=== PATIENT | female | born 1995 | race Caucasian/White ===

== ENCOUNTER 2022-10-14 11:07 | Emergency (ER) | payer OTHER, SELFPAY ==
[2022-10-14] VITALS (7 sets, daily range): BP systolic 123–148; BP diastolic 71–85; PULSE 65–87; RESP 16–18; TEMP 36.4; O2SAT 98–99; BMI 36.6
--- NOTE | 2022-10-14 11:41 | ED.ALLEREA ---
HPI - Allergic Reaction General Chief complaint: Allergic Reaction Stated complaint: allergic reaction,rt arm swelling, sob Time Seen by Provider: 10/14/22 11:41 Source: patient Mode of arrival: Family Vehicle Limitations: no limitations History of Present Illness HPI narrative: This is a 19-year-old female with history of environmental allergies oral contraceptives who presents with complaint of allergic reaction after getting her typical allergy shot. She states she thinks it may have increased the dosage today. She had redness swelling at the site which is atypical and developed some swelling of her lips and feeling tight in her chest. She used her albuterol inhaler at home which was helpful for the breathing. She did take cetirizine this morning before her shots. Shots for about 7:00 a.m. this morning she developed symptoms about 9 9:30 a.m.. She states it has been slowly worsening. She denies any chest pain or pressure. No syncope. No nausea or vomiting, no diarrhea constipation. No rash elsewhere or hives otherwise. She has not had a response like this before. She has never received epinephrine. She is otherwise been healthy. No known drug allergies. No tobacco, occasional alcohol, no recreational drugs or illicit. Related Data Previous Rx's Medication Instructions Recorded epinephrine 0.3 mg/0.3 mL 0.3 mg (0.3 mL) IM Q5-15M PRN 10/14/22 injection, auto-injector (EpiPen anaphylaxis #2 ea 2-Paul) prednisone 20 mg tablet 40 mg PO DAILY #10 tabs 10/14/22 Review of Systems Review of Systems ROS Unobtainable: All systems reviewed & are unremarkable except as noted in HPI and below Patient History Social History Smoking Status: Never smoker Smoking Status: Never smoker alcohol intake frequency: a few times a month Substance Use Type: does not use Exam Narrative Exam Narrative: GEN: well nourished, well appearing female, alert and oriented x 3, patient appears to be in mild distress. HEENT: Atraumatic, pupils are equal round reactive to light, extraocular movements are intact, nares are clear, TMs are clear with no fluid, there is no conjunctival pallor. Throat is clear without any exudates, erythema, tonsillar enlargement or uvular deviation, patient has some slight swelling of lower lips. No muffled voice, clear speech no stridor, no difficulty with secretions. HEART: Regular rate and rhythm without murmur, clicks, rubs. LUNGS:Lungs clear to auscultation, no wheezes, rales, crackles, chest moves symmetrically ABD:bowel sounds normal, soft, non-tender, no guarding, rebound, rigidity, no masses noted, no hepatosplenomegaly :No CVA tenderness MSCL: Non-tender, no muscle atrophy, muscles strength 5/5 upper and lower extremities, full range of motion, normal gait NEURO:CN 2-12 intact, sensation normal SKIN: Patient has swelling of the left deltoid region consistent where she had her injection with some erythema. No hives. Initial Vital Signs Initial Vital Signs: Vital Signs Temperature 97.5 F L 10/14/22 11:28 Pulse Rate 87 10/14/22 11:28 Respiratory Rate 18 10/14/22 11:28 Blood Pressure 148/85 H 10/14/22 11:28 Pulse Oximetry 98 10/14/22 11:28 Oxygen Delivery Method Room Air 10/14/22 11:28 Course Orders Ordered: Discontinued Medications Diphenhydramine HCl (Diphenhydramine 50 Mg/Ml Vial) 50 mg IV NOW ONE Stop: 10/14/22 11:42 Last Admin: 10/14/22 11:48 Dose: 50 mg Documented By: BS Famotidine (Famotidine 20 Mg/2 Ml Vial) 20 mg IV NOW SESAR Last Admin: 10/14/22 11:48 Dose: 20 mg Documented By: LEONARDO Methylprednisolone (Methylprednisolone 125 Mg/2 Ml Vial) 125 mg IV NOW ONE Stop: 10/14/22 11:42 Last Admin: 10/14/22 11:47 Dose: 125 mg Documented By: LEONARDO Vital Signs Vital signs: Vital Signs - 8 hr 10/14/22 12:00 10/14/22 12:04 10/14/22 12:04 Pulse Rate 82 81 Respiratory Rate Blood Pressure 126/72 Pulse Oximetry 98 99 Oxygen Delivery Method 10/14/22 12:30 10/14/22 12:31 10/14/22 12:31 Pulse Rate 65 72 Respiratory Rate Blood Pressure 124/73 Pulse Oximetry 99 99 Oxygen Delivery Method 10/14/22 13:38 Pulse Rate 83 Respiratory Rate 16 Blood Pressure 123/71 Pulse Oximetry 99 Oxygen Delivery Method Room Air MDM - Allergic Reaction Lab Data Labs: Point of Care Testing Test Results Negative Urine Dip Bedside Urine Glucose Negative Bedside Urine Bilirubin - Negative Bedside Urine Ketone - Negative Urine Specific [place] 1.015 Bedside Urine Occult Blood - Negative Bedside Urine pH 6.0 Bedside Urine Protein - Negative Bedside Urine Urobilinogen - Negative Bedside Urine Nitrite - Negative Bedside Urine Leukocytes +/- 15 Esterase MDM Narrative Medical decision making narrative: 27-year-old female who presents with complaint of allergic reaction to allergy shots. Patient does have some mild swelling but has been slowly progressive so will try steroids, Benadryl and Pepcid. Patient rechecked shortly after receiving medications. Patient states no worsening. She has not noticed significant improvement. She states symptoms have been stapled. Feels comfortable with discharge home. Indications as well as prescription for EpiPen provided. Discharge Plan Departure Patient Disposition: Home Clinical Impression: Allergic reaction Instructions: DI for Anaphylaxis Activity Restrictions/Additional Instructions: Follow-up with your physician who provides her allergy shots. Continue your certrizine daily. Take 1-2 tablets of Benadryl (diphenhydramine) every 6 hours as needed for symptoms. Take prednisone until completed. Use EpiPen as directed. If you have to use your EpiPen you should be evaluated in emergency department afterwards or by EMS. Prescription sent to [facility] pharmacy in [place]. Please return for new or worsening symptoms, increasing swelling of your lips, tongue or airway, increasing chest pain or shortness of breath, persistent vomiting, increasing swelling of extremities or other new or concerning changes. Prescriptions: New prednisone 20 mg tablet 40 mg PO DAILY Qty: 10 0RF epinephrine [EpiPen 2-Paul] 0.3 mg/0.3 mL auto-injector 0.3 mg IM Q5-15M PRN (Reason: anaphylaxis) Qty: 2 0RF Rx Instructions: do not exceed 3 doses per episode Stand Alone Forms: Patient Portal/API, Work Release Note
[2022-10-14] MEDS: methylPREDNISolone 125 MG/2 ML VIAL IV (11:47)
[2022-10-14] MEDS: diphenhydrAMINE 50 MG/ML VIAL IV (11:48)
[2022-10-14] MEDS: FAMOTIDINE 20 MG/2 ML VIAL IV (11:48)
== END 2022-10-14 14:03 | disposition home or self-care (01) ==
PROVIDERS: Emergency Provider Emergency Medicine
DX: T78.40XA Allergy, unspecified, initial encounter (principal)
CPT/HCPCS: 36415; 81003; 81025; 96374; 96375; 99284; J1200; J2930

== ENCOUNTER 2023-02-16 17:48 | Emergency (ER) | payer OTHER, SELFPAY ==
[2023-02-16 17:57] VITALS: BP 123/84; PULSE 83; RESP 16; TEMP 36.6; O2SAT 100; BMI 35.5
--- NOTE | 2023-02-16 18:02 | DI.RAD.S_ITS ---
PROCEDURE: XR ANKLE RT MIN 3V INDICATIONS: rolled it, pain TECHNIQUE: 3 views of the ankle were acquired. COMPARISON: None. FINDINGS: Bones: No fractures or dislocations. Ankle mortise is normally aligned. No suspicious bony lesions. Soft tissues: No tibiotalar joint effusion. Achilles tendon appears normal. IMPRESSION: No acute bony abnormality or significant effusion. Dictated by: Felicity Flowers M.D. on 02/16/2023 at 18:23 Approved by: Felicity Flowers M.D. on 02/16/2023 at 18:23
[2023-02-16] MEDS: IBUPROFEN 400 MG TABLET 800 MG PO (18:31)
--- NOTE | 2023-02-16 18:48 | DI.RAD.S_ITS ---
PROCEDURE: XR TIBIA FUBULA RT 2V INDICATIONS: Tenderness over proximal tibia TECHNIQUE: 2 views of the tibia and fibula were acquired. COMPARISON: None. FINDINGS: Bones: No fractures or dislocations. No suspicious bony lesions. Soft tissues: No suspicious soft tissue calcifications or masses. IMPRESSION: No acute bony abnormality. Dictated by: Felicity Flowers M.D. on 02/16/2023 at 20:53 Approved by: Felicity Flowers M.D. on 02/16/2023 at 20:53
--- NOTE | 2023-02-16 18:49 | ED.LOWEXIN ---
HPI - Extremity Injury (Lower) <Melinda Rosen PA-C - Last Filed: 02/16/23 19:36> General Chief Complaint: Extremity Injury, Lower Stated Complaint: fell down stairs/rt ankle inj/burning sensations Time Seen by Provider: 02/16/23 18:08 Source: patient Mode of arrival: Ambulatory History of Present Illness HPI Narrative: Patient is a 27-year-old female presenting for evaluation of right ankle pain. She states that she fell down the stairs early this morning and inwardly rolled her right ankle. She reports that she did hit her head lightly on the right lateral aspect on the front side. She reports feeling a little bit of numbness in her right foot today and reports worse pain over her right lateral malleolus. She reports pain with dorsiflexion and external rotation present just distal to her right knee. Related Data Previous Rx's Medication Instructions Recorded epinephrine 0.3 mg/0.3 mL 0.3 mg (0.3 mL) IM Q5-15M PRN 10/14/22 injection, auto-injector (EpiPen anaphylaxis #2 ea 2-Paul) prednisone 20 mg tablet 40 mg (2 x 20 mg) PO DAILY #10 tabs 10/14/22 Allergies Allergy/AdvReac Type Severity Reaction Status Date / Time No Known Drug Allergies Allergy Verified 02/16/23 17:57 Review of Systems <Melinda Rosen PA-C - Last Filed: 02/16/23 19:36> Review of Systems Narrative: See HPI Patient History <Melinda Rosen PA-C - Last Filed: 02/16/23 19:36> Social History Smoking Status: Never smoker Smoking Status: Never smoker alcohol intake frequency: a few times a month Substance Use Type: does not use Exam <Melinda Rosen PA-C - Last Filed: 02/16/23 19:36> Initial Vital Signs Initial Vital Signs: Vital Signs Temperature 97.8 F 02/16/23 17:57 Pulse Rate 83 02/16/23 17:57 Respiratory Rate 16 02/16/23 17:57 Blood Pressure 123/84 02/16/23 17:57 Pulse Oximetry 100 02/16/23 17:57 Oxygen Delivery Method Room Air 02/16/23 17:57 GENERAL: 27 year old patient appears stated age. Well-developed patient, in no acute distress. HEAD: Atraumatic. Normocephalic. EYES: Pupils equal round No scleral icterus. No injection or drainage. NECK: Trachea midline, supple RESPIRATORY: Speaking comfortably normal tone of voice without any increased work of breathing. EXTREMITIES: Tenderness to palpation of right lateral malleolus, tender to palpation of high ankle, worse over the medial aspect just distal to right knee. Right Posterior tibialis pulse 2 +, no bruising noted, there is slight swelling over the right lateral malleolus NEURO: AOx3. SKIN: No rash or erythema of visible areas <Myah Figueredo MD - Last Filed: 02/16/23 20:37> Initial Vital Signs Initial Vital Signs: Vital Signs Temperature 97.8 F 02/16/23 17:57 Pulse Rate 83 02/16/23 17:57 Respiratory Rate 16 02/16/23 17:57 Blood Pressure 123/84 02/16/23 17:57 Pulse Oximetry 100 02/16/23 17:57 Oxygen Delivery Method Room Air 02/16/23 17:57 Procedures <Myah Figueredo MD - Last Filed: 02/16/23 20:37> Orthopedic Splinting/Casting Right ankle: Time of procedure: 20:34 Side: right Lower Extremity Immobilizer: boot orthosis Post splinting neuro exam: intact Post splinting vascular exam: intact Placed by: Nursing Course <Melinda Rosen PA-C - Last Filed: 02/16/23 19:36> Orders Ordered: ED Orders 02/16/23 18:02 XR ankle RT min 3V Stat 02/16/23 18:48 XR tibia fibula RT 2V Stat Discontinued Medications Ibuprofen (Ibuprofen 400 Mg Tablet) 800 mg PO NOW ONE Stop: 02/16/23 18:28 Last Admin: 02/16/23 18:31 Dose: 800 mg Documented By: CHUNG Vital Signs Vital signs: Vital Signs - 8 hr 02/16/23 17:57 Temperature 97.8 F Pulse Rate 83 Respiratory Rate 16 Blood Pressure 123/84 Pulse Oximetry 100 Oxygen Delivery Method Room Air <Myah Figueredo MD - Last Filed: 02/16/23 20:37> Orders Ordered: ED Orders 02/16/23 18:02 XR ankle RT min 3V Stat 02/16/23 18:48 XR tibia fibula RT 2V Stat Discontinued Medications Ibuprofen (Ibuprofen 400 Mg Tablet) 800 mg PO NOW ONE Stop: 02/16/23 18:28 Last Admin: 02/16/23 18:31 Dose: 800 mg Documented By: CHUNG Vital Signs Vital signs: Vital Signs - 8 hr 02/16/23 17:57 Temperature 97.8 F Pulse Rate 83 Respiratory Rate 16 Blood Pressure 123/84 Pulse Oximetry 100 Oxygen Delivery Method Room Air [facility] - Extremity Injury (Lower) <Melinda Rosen PA-C - Last Filed: 02/16/23 19:36> Imaging Data Right ankle x-ray: Radiologist's Impression: PROCEDURE: XR ANKLE RT MIN 3V INDICATIONS: rolled it, pain TECHNIQUE: 3 views of the ankle were acquired. COMPARISON: None. FINDINGS: Bones: No fractures or dislocations. Ankle mortise is normally aligned. No suspicious bony lesions. Soft tissues: No tibiotalar joint effusion. Achilles tendon appears normal. IMPRESSION: No acute bony abnormality or significant effusion. Dictated by: Felicity Flowers M.D. on 02/16/2023 at 18:23 Approved by: Felicity Flowers M.D. on 02/16/2023 at 18:23 [facility] Narrative Medical decision making narrative: Patient is a 27-year-old female presenting for evaluation of right ankle pain after she fell down the stairs early this morning. Right ankle films show no evidence of dislocation or fracture, tib-fib films show. Patient was treated with 800 mg of ibuprofen. Multiple etiologies for patient's symptoms considered including, but not limited to: Tibia fracture, right ankle sprain, high ankle sprain Imaging reviewed: Right ankle x-ray showed no evidence of fracture, awaiting tib-fib x-ray. Consultations: Discussed case with Dr. Figueredo. She recommends further x-ray with tib-fib to rule out fracture. If there was no fracture present, recommend treatment for ankle sprain. Due to end of shift, care transferred to Dr. Figueredo. We are awaiting x-ray results of tib-fib film. <Myah Figueredo MD - Last Filed: 02/16/23 20:37> [facility] Narrative Medical decision making narrative: Patient is a 27-year-old female presenting for evaluation of right ankle pain after she fell down the stairs early this morning. Right ankle films show no evidence of dislocation or fracture, tib-fib films show. Patient was treated with 800 mg of ibuprofen. Multiple etiologies for patient's symptoms considered including, but not limited to: Tibia fracture, right ankle sprain, high ankle sprain Imaging reviewed: Right ankle x-ray showed no evidence of fracture, awaiting tib-fib x-ray. Consultations: Discussed case with Dr. Figueredo. She recommends further x-ray with tib-fib to rule out fracture. If there was no fracture present, recommend treatment for ankle sprain. Due to end of shift, care transferred to Dr. Figueredo. We are awaiting x-ray results of tib-fib film. Films are independently reviewed. No evidence of proximal fibular fracture. Patient is independently evaluated. Findings are discussed. 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 We discussed pain medication, anticipated course of recovery and reasons to return to the emergency department. She is safe for discharge Discharge Plan Departure Patient Disposition: Home Clinical Impression: Ankle sprain and strain Instructions: DI for Ankle Sprain Activity Restrictions/Additional Instructions: Thank you for coming in today X-rays of your ankle and your knee show no evidence of any fractures. You have sprained the ankle and this is going to improve. I have given you a boot to use to protect her ankle over the next couple of days. As it is feeling better you can go back to the splint that you currently have on and as it continues to heal you can discontinue any type of bracing. Using 400 mg of ibuprofen (2 [id number] pills) and 1 Tylenol every 6 hours and ice can be very helpful in controlling pain. If you find that you are not significantly improving at a week or have new or additional symptoms that would be very appropriate to follow up with your primary care doctor. You having worsening acute issues, please return to the ER Prescriptions: No Action prednisone 20 mg tablet 40 mg PO DAILY Qty: 10 0RF epinephrine [EpiPen 2-Paul] 0.3 mg/0.3 mL auto-injector 0.3 mg IM Q5-15M PRN (Reason: anaphylaxis) Qty: 2 0RF Rx Instructions: do not exceed 3 doses per episode Stand Alone Forms: Patient Portal/API
== END 2023-02-16 20:48 | disposition home or self-care (01) ==
PROVIDERS: Emergency Provider Physician Assistant
DX: S93.401A Sprain of unspecified ligament of right ankle, initial encounter (principal); S96.911A Strain of unspecified muscle and tendon at ankle and foot level, right foot, initial encounter; X50.1XXA Overexertion from prolonged static or awkward postures, initial encounter
CPT/HCPCS: 73590; 73610; 99283